=== PATIENT | female | born 1965 | race Caucasian/White ===

== ENCOUNTER 2019-05-28 18:15 | Emergency (ER) | payer OTHER ==
[~2019-05-28] VITALS: Ht 162.6 cm; Wt 69.4 kg
[2019-05-28 18:24] VITALS: BP 134/76
--- NOTE | 2019-05-28 18:28 | NUR ---
PT TO BED 2 WITH ASSISTANCE AMBULATING
--- NOTE | 2019-05-28 19:01 | NUR ---
C/O HEAD PAIN POST BOX FALLING FROM WORK AND HITTING PTS HEAD YESTERDAY DENIES LOC.PT AWAKE , ALERT , AMBULATORY WITH STEADY GAIT. PT IS ZAMBIAN SPEAKING
--- NOTE | 2019-05-28 19:04 | NUR ---
GAVE REPORT TO DEQUAN DELVALLE
[2019-05-28] MEDS ORDERED: MECLIZINE 25 MG TAB PO ONE (19:15)
--- NOTE | 2019-05-28 20:00 | NUR ---
EKG PERFORMED AT BEDSIDE
[2019-05-28] MEDS: NACL 0.9% 1,000 ML IV ONE (20:07)
[2019-05-28] MEDS: ONDANSETRON 4 MG/2 ML VIAL IVP ONE (20:09)
[2019-05-28] MEDS: MORPHINE SULFATE 4 MG/ML SYR IVP ONE (20:10)
[2019-05-28 20:23] LABS: BASOPHILS % (AUTO) 0.2 % (0.0-2.0); EOSINOPHILS # (AUTO) 0.2 K/uL (0-0.4); EOSINOPHILS % (AUTO) 2.2 % (0.0-4.0); HEMATOCRIT 43.8 % (36-48); HEMOGLOBIN 14.7 g/dL (12.0-16.0); LYMPHOCYTES # (AUTO) 4.3 K/uL (2.5-16.5); LYMPHOCYTES % (AUTO) 49.9 % (20.5-51.1); MEAN CORPUSCULAR HEMOGLOBIN 30 pg (27-31); MEAN CORPUSCULAR HGB CONC 34 g/dL (33-37); MEAN CORPUSCULAR VOLUME 90.3 fL (80-94); MONOCYTES # (AUTO) 0.4 K/uL (0.8-1.0); MONOCYTES % (AUTO) 4.9 % (1.7-9.3); NEUTROPHILS # (AUTO) 3.7 K/uL (1.8-7.7); NEUTROPHILS % (AUTO) 42.8 % (42.2-75.2); PLATELET COUNT (AUTO) 351 K/uL (140-450); RED BLOOD CELL COUNT(AUTO) 4.85 MIL/uL (4.20-5.40); RED CELL DISTRIBUTION WIDTH 13.3 % (11.6-13.7); WHITE BLOOD COUNT (AUTO) 8.6 K/uL (4.8-10.8)
[2019-05-28 20:46] LABS: APPEARANCE,URINE CLEAR (CLEAR); BILIRUBIN,URINE NEGATIVE (NEGATIVE); BLOOD, URINE TRACE-I (NEGATIVE); COLOR,URINE YELLOW (YELLOW); LEUKOCYTE ESTERASE ,URINE 1+ (NEGATIVE); NITRITE, URINE NEGATIVE (NEGATIVE); PH,URINE 6.5 (5.0-9.0); UGLUCOSE NEGATIVE (NEGATIVE)
[2019-05-28 20:52] LABS: ANION GAP 12.3 (8-16); CARBON DIOXIDE 29.3 mmol/L (21-32); CREATININE 0.8 mg/dL (0.6-1.3); POTASSIUM 3.6 mmol/L (3.5-5.1)
[2019-05-28 20:56] LABS: ALBUMIN 4.3 g/dL (3.4-5.0); TOTAL BILIRUBIN 0.2 mg/dL (0.0-1.0)
[2019-05-28 21:00] LABS: RBC,URINE 0-5 /HPF (0-5)
--- NOTE | 2019-05-28 21:00 | NUR ---
PATIENT ALERT AND AWAKE, BREATHING EVEN AND UNLABORED
--- NOTE | 2019-05-28 21:01 | NUR ---
PATIENT STATES STILL DIZZINESS, DR REYES AWARE
[2019-05-28] MEDS: LORazepam 2 MG/ML VIAL IVP ONE (21:10)
[2019-05-28 22:25] VITALS: BP 143/76
--- NOTE | 2019-05-28 22:25 | NUR ---
DPatient discharged with v/s stable. Written and verbal after care instructions ABOUT DIZZINESS AND TRIGEMINAL NEURALGIA given and explained. Patient alert, oriented and verbalized understanding of instructions. Ambulatory with steady gait. All questions addressed prior to discharge. ID band removed. Patient advised to follow up with PMD. Rx of ATIVAN given. Patient educated on indication of medication including possible reaction and side effects. Opportunity to ask questions provided and answered.
== END 2019-05-28 22:25 | disposition home or self-care (01) ==
LOC: MED 18:15
DX: R42 Dizziness and giddiness (principal); G50.0 Trigeminal neuralgia; Z88.8 Allergy status to other drugs, medicaments and biological substances
CPT/HCPCS: 36415; 80053; 81001; 81025; 84484; 85025; 87086; 93005; 96361; 96374; 96375; 99284; J2060; J2270; J2405; J7030

== ENCOUNTER 2022-04-21 14:25 | Emergency (ER) | payer OTHER ==
[~2022-04-21] VITALS: Ht 160 cm; Wt 70.8 kg
[2022-04-21 14:50] VITALS: BP 121/62
--- NOTE | 2022-04-21 15:06 | NUR ---
Pt ambulated to outside lobby benches.
--- NOTE | 2022-04-21 15:30 | NUR ---
56/F WALKED IN C/O SWELLING AND HEARING LOSS BEHIND L EAR S/P BRAIN SX ON 03/14/22 FOR TRIGEMINAL NEURALGIA. PT REPORTS PERMANENT RIGHT EAR HEARING LOSS. NO WOUND OR BLEEDING NOTED AT THIS TIME. AAO4, AMBULATORY. PMH: trigeminal neuralgia, migraine headaches, vertigo Meds: oxcarbazepine, lyrica, tramadol, mortazapine, eye drops Sx: brain sx 03/14/22 Allergies: sumatriptan
[2022-04-21] MEDS ORDERED: MAG SULF 2000 MG/WATER PREMIX 50 ML IV ONE (17:06)
[2022-04-21] MEDS ORDERED: NAPR-54 PO (17:45)
[2022-04-21 17:55] VITALS: BP 116/66
== END 2022-04-21 17:55 | disposition home or self-care (01) ==
LOC: MED 14:25
DX: R22.0 Localized swelling, mass and lump, head (principal); H91.92 Unspecified hearing loss, left ear; G43.909 Migraine, unspecified, not intractable, without status migrainosus
CPT/HCPCS: 70450; 99284; J3475